=== PATIENT | female | born 1970 | race African-American/Black ===

== ENCOUNTER 2017-07-26 09:11 | Inpatient (IN) | payer OTHER ==
[~2017-07-26] VITALS: Ht 152.4 cm; Wt 81.6 kg
--- NOTE | ~2017-07-26 | HC ---
[facility] [place] [address] CONSULTATION Name: BRIANA TANG Room #: 444-P ADM IN M.R.#: [id number] Admission: 07/26/17 Attend Phys: Billie Castañeda Discharge: Date of : 74 Report #: [id number] THIS REPORT FOR: //name// CC: FAM unknown Billie Castañeda DATE OF SERVICE: 07/26/2017 REASON FOR PRESENTATION: Bilateral upper extremity numbness along with left lower extremity weakness and stumbling. HISTORY OF PRESENT ILLNESS: A 46-year-old with past medical history of multiple sclerosis diagnosed back in 2011. She received some steroids back then. Her symptoms were discovered after optic neuritis. She also received some disease modifying agents; however, she could not tolerate it. They told her that the course of her multiple sclerosis would be waxing and waning. She used to follow up with a neurologist in [place]. She recently got employed by [employer] and was trying to get herself involved with our neurologist here. Over the last few days, she had had some issues with bilateral hands and digits numbness. She also had some left lower extremity numbness. Those symptoms were waxing and waning over the last few days; however, they started about 3 months ago. She also reported some stumbling slightly with ambulation. There is no loss of consciousness. Because of the worsening of the symptoms, she presented to the emergency room. CT images were obtained. Neurological consultation was also obtained. Decision was made to admit the patient for pulse IV steroids until further evaluation of disease modifying agents by a specialized multiple sclerosis neurologist. PAST MEDICAL HISTORY: 1. Multiple sclerosis. 2. Right hiatal hernia repair. 3. Right tibial plateau fracture. ALLERGIES: None. MEDICATIONS: 1. Topamax. 2. Gabapentin. FAMILY HISTORY: Mom and sister had breast cancer. Father has small lung cancer. REVIEW OF SYSTEMS: GENERAL: No fever or chills. CARDIOVASCULAR: No chest pain or palpitation. PULMONARY: No cough or hemoptysis. [facility] [address] [place] [address] CONSULTATION Name: LONI CASTILLOBRIANA LOVETT Room #: 444-P ADM IN M.R.#: [id number] Admission: 07/26/17 Attend Phys: Billie Castañeda Discharge: Date of : 74 Report #: [id number] GASTROINTESTINAL: No nausea or vomiting. GENITOURINARY: No frequency, no urgency. NEUROLOGIC: As per the history of present illness. PHYSICAL EXAMINATION: GENERAL: She is alert, oriented, in no apparent distress. VITAL SIGNS: Temperature 36.9, blood pressure 121/88. HEAD AND NECK: No jugular venous distention, no bruit, no thyromegaly. CHEST: Clear to auscultation bilaterally. CARDIOVASCULAR: Regular with no rub detected. ABDOMEN: Soft, nontender with no hepatosplenomegaly. LOWER EXTREMITIES: No edema with intact peripheral pulses. NEUROLOGICAL: Slight impairment of sensations on the digits of both hands. Symmetrical power in both upper extremities. Symmetrical power in both lower extremities. Reflexes were intact bilaterally. Grossly intact cranial nerves. LABORATORY DATA: Essentially not remarkable hematology and chemistry. C-reactive proteins negative. Urine negative. Head CT was also reviewed and this revealed bilateral foci of demyelination. ASSESSMENT, IMPRESSION AND PLAN: 1. Multiple sclerosis with a recent flare up: 1. Admission. Per Neurology recommendation. 2. IV pulse steroids. 3. Gastrointestinal prophylaxis. 4. Monitor blood sugar. Ultimately, the patient will need to see multiple sclerosis, neurologist for disease modifying agents rather than pulse dose steroids every once in a while. Very low risk for deep venous thrombosis. No need for deep venous thrombosis prophylaxis. Once she is done with 3-5 days of pulse steroids, she is okay to be discharged with followup with her neurologist as an outpatient. By: 1436 [id number] Cristóbal Freire MD /nt
--- NOTE | ~2017-07-26 | HC ---
[facility] [place] [address] CONSULTATION Name: BRIANA TANG Room #: 444-P [facility] IN M.R.#: [id number] Admission: 07/26/17 Attend Phys: Billie Castañeda Discharge: 07/28/17 Date of : 74 Report #: [id number] THIS REPORT FOR: //name// CC: FAM unknown Billie Castañeda DATE OF SERVICE: 07/26/2017 HISTORY OF PRESENT ILLNESS: This is a 46-year-old female patient who indicated that she was diagnosed with MS in 2011. She had presented with optic neuritis of one eye and subsequently had some more symptoms. She saw Dr. Doyle who is a neurologist and they gave her IV steroids in 2011 and put her on Gilenya. She had some flu-like symptoms and she stopped taking Gilenya 2 weeks after she started because she thinks her symptoms were not severe. She has not had any followup and she started having numbness and weakness of about 2-3 months ago. This started spontaneously without any trauma and they have become somewhat worse over a period of time. She does have some nonspecific difficulty with walking. REVIEW OF SYSTEMS: Indicate she has been otherwise reasonably healthy. She did have some knee problem. She was checked for Lyme disease at one time. She contacted a neurologist who told her they want to check her for NMO, but her symptoms became worse and she came here for evaluation to Emergency Room from where she was admitted. She had a prior history of tubal ligation and her test is negative. This was her relevant 14-point review of system. PAST MEDICAL HISTORY: Positive for diagnosis of MS. FAMILY HISTORY: Negative for any MS. SOCIAL HISTORY: She indicates she does not use any drugs. PHYSICAL EXAMINATION: Indicate that she is alert and responsive. She can follow simple commands. Her speech, concentration, fund of knowledge and memory is at her baseline. Cranial nerve examination 2-12 is mostly unremarkable. Neuromuscular examination indicate that she does appear to have reflexes, more on the left side as compared to the right side in the lower extremities. There is no meningeal sign in this patient. I could not look at the fundus. She is a well-developed individual who does not have any dysmorphic features of eyes, ears and face. Her blood pressure is 134/69, respirations 18, pulse is 92, temperature is 98.4. CT scan demonstrated findings consistent with MS. She believes her MRI in 2011 was a noncontrast MRI. IMPRESSION: This patient's clinical presentation is consistent with multiple [address] [address] CONSULTATION Name: BRIANA TANG Room #: [address] [place] [address] [place] M.R.#: [id number] Admission: 07/26/17 Attend Phys: Billie Castañeda Discharge: 07/28/17 Date of : 74 Report #: [id number] sclerosis. She had workup in the past and we will try to do the workup again. I discussed with her a contrast enhanced MRI and potential complication of contrast including irreversible dermatological complication. She understood all those. She wanted to go ahead and do with contrast. They have already given steroids in the Emergency Room and we will continue that. She can probably get 5 days course of IV steroids followed by oral steroid. Depending upon the MRI or other workup that we will do, she may need some more testing and needs to be on disease modifying treatment. All of it was discussed in detail with the patient and her options were discussed in detail. More than 50 minutes of time was spent taking care of this patient today and majority of that time was spent counseling this patient as well as coordinating her care. Thank you very much for this referral. <ELECTRONICALLY SIGNED> By: Ramirez Mckeon MD 07/29/17 0943 [id number] [id number] Ramirez Mckeon MD /nt
[2017-07-26 09:12] VITALS: BP 132/71
[2017-07-26 10:16] LABS: ABSOLUTE NEUTROPHILS 6.3 thou/uL (1.4-8.2); BASOPHILS 0.7 % (0.0-2.0); EOSINOPHILS 1.5 % (0.0-3.0); HEMATOCRIT 38.6 % (37.0-47.0); HEMOGLOBIN 12.8 gm/dL (12.0-15.0); LYMPHOCYTES 28.4 % (24.0-44.0); MCH 26.8 pg (26.0-34.0); MCHC 33.1 g/dL (28.0-37.0); MCV 80.7 fL (80.0-100.0); MONOCYTES 6.8 % (1.0-8.0); PLATELET COUNT 348 thou/uL (150-400); POLYS 62.6 % (36.0-66.0); RBC 4.78 mil/uL (4.20-5.00); RDW 16.1 % (10.5-14.5)
[2017-07-26 10:20] LABS: MANUAL DIFF NO
[2017-07-26 10:25] LABS: CALCIUM 8.8 mg/dL (8.5-10.1); CREATININE 0.9 mg/dL (0.6-1.0); POTASSIUM 4.2 mmol/L (3.5-5.1)
[2017-07-26 11:34] LABS: ESR (SEDRATE) 26 mm/hr (0-20)
[2017-07-26 12:40] VITALS: BP 119/88
[2017-07-26 14:02] VITALS: BP 121/88
[2017-07-26 14:44] VITALS: BP 134/69
[2017-07-26] MEDS ORDERED: ADIPEX-P37.5 MG PO (15:34)
[2017-07-26] MEDS ORDERED: GABAPENTIN 100100 MG PO (15:36)
[2017-07-26] MEDS ORDERED: TOPAMAX 25 MG T25 M1 PO (15:37)
[2017-07-26] MEDS ORDERED: UNICOMPLEX M TA1 TA1 PO (15:39)
[2017-07-26 20:00] VITALS: BP 130/81
[2017-07-27 04:00] VITALS: BP 120/74
[2017-07-27 08:00] VITALS: BP 126/67
[2017-07-27 16:00] VITALS: BP 127/60
[2017-07-27 19:37] VITALS: BP 147/75
[2017-07-28 05:29] LABS: HEMATOCRIT 34.4 % (37.0-47.0); HEMOGLOBIN 11.1 gm/dL (12.0-15.0); MCH 25.9 pg (26.0-34.0); MCHC 32.2 g/dL (28.0-37.0); MCV 80.4 fL (80.0-100.0); RBC 4.27 mil/uL (4.20-5.00)
[2017-07-28 05:37] LABS: WBC 26.3 thou/uL (4.0-11.0)
[2017-07-28 05:43] LABS: ALBUMIN 2.7 g/dL (3.4-5.0); CALCIUM 8.5 mg/dL (8.5-10.1); CREATININE 0.8 mg/dL (0.6-1.0); TOTAL BILIRUBIN 0.2 mg/dL (<0.1-1.0); TOTAL PROTEIN 6.4 g/dL (6.4-8.2)
[2017-07-28 07:37] VITALS: BP 134/64
[2017-07-28 14:28] VITALS: BP 134/64
[2017-07-28 14:51] VITALS: BP 134/64
== END 2017-07-28 15:34 | disposition home or self-care (01) | DRG 58 ==
LOC: ER 09:11 → EROBS 12:52 → 4S 12:52
PROVIDERS: Emergency Medicine; Psychiatry & Neurology Neuromuscular Medicine
DX: G35 Multiple sclerosis (principal); E43 Unspecified severe protein-calorie malnutrition; Z79.899 Other long term (current) drug therapy; Z87.81 Personal history of (healed) traumatic fracture; Z80.3 Family history of malignant neoplasm of breast; Z80.1 Family history of malignant neoplasm of trachea, bronchus and lung
CPT/HCPCS: 10100; 20061; 20066

== ENCOUNTER → 2017-07-29 | Outpatient (CLI) | payer OTHER ==
[~2017-07-29] MED LIST: ADDERALL 20 MG20 MG PO; ADIPEX-P37.5 MG PO; GABAPENTIN 100100 MG PO; TECFIDERA240 MG PO; TOPAMAX 25 MG T25 M1 PO; UNICOMPLEX M TA1 TA1 PO; VITAMIN D5000 UNIT PO
[2017-07-29 10:40] VITALS: BP 119/68
== END ==
LOC: OPONC 06:14
DX: G35 Multiple sclerosis (principal)
CPT/HCPCS: 95000

== ENCOUNTER → 2017-07-30 | Outpatient (CLI) | payer OTHER ==
[2017-07-30 14:44] VITALS: BP 126/72
== END ==
LOC: OPONC 06:25
DX: G35 Multiple sclerosis (principal)
CPT/HCPCS: 95000

== ENCOUNTER → 2017-08-21 | Outpatient (CLI) | payer OTHER ==
[~2017-08-21] MED LIST changes: -ADDERALL 20 MG20 MG PO; -TECFIDERA240 MG PO; -VITAMIN D5000 UNIT PO
== END ==
LOC: RAD 13:22
DX: Z12.31 Encounter for screening mammogram for malignant neoplasm of breast (principal)

== ENCOUNTER → 2017-09-03 | Outpatient (CLI) | payer OTHER ==
[~2017-09-03] MED LIST changes: +ADDERALL 20 MG20 MG PO; +TECFIDERA240 MG PO; +VITAMIN D5000 UNIT PO
== END ==
LOC: RAD 00:22
DX: R92.8 Other abnormal and inconclusive findings on diagnostic imaging of breast (principal)

== ENCOUNTER → 2017-12-02 | Outpatient (CLI) | payer OTHER ==
[~2017-12-02] MED LIST changes: -ADDERALL 20 MG20 MG PO; -TECFIDERA240 MG PO; -VITAMIN D5000 UNIT PO
--- NOTE | ~2017-12-02 | EKG ---
[address] [address] ELECTROCARDIOGRAM REPORT Name: BRIANA TANG Room #: [facility]#: [id number] Admission: 12/02/17 Attend Phys: Ramirez Mckeon MD Discharge: Date of : 74 Report #: [id number] THIS REPORT FOR: //name// [facility] Test Date: 2017-12-02 Test Time: 14:11:09 Pat Name: BRIANA ROBERTS Department: Room: Gender: F Mica Patcher: KILLIAN : 1970 Requested By: Ramirez Mckeon Order Number: [id number] MD: Fortunato Bardales Measurements Intervals [place] Rate: 114 P: 66 OR: 179 QRS: 40 QRSD: 74 T: 29 QT: 334 QTc: 461 Interpretive Statements Sinus tachycardia Probable left atrial enlargement No previous ECG available for comparison Electronically Signed On 12-02-2017 15:53:52 CDT by Fortunato Bardales [email or web address] <ELECTRONICALLY SIGNED> By: Fortunato Bardales MD 12/02/17 1553 1411 1411 MD VENANCIO Garcia
== END ==
LOC: CV 13:53
DX: Z01.818 Encounter for other preprocedural examination (principal); G35 Multiple sclerosis